=== PATIENT | male | born 1950 | race Caucasian/White ===

== ENCOUNTER → 2018-11-22 | Outpatient (CLI) | payer MEDICARE ==
--- NOTE | 2018-11-22 15:23 | CT ---
EXAM DESCRIPTION: CT abdomen and pelvis without and with contrast CLINICAL HISTORY: GROSS HEMATURIA COMPARISON: None Available. TECHNIQUE: Spiral CT with multiplanar reformatted images. Intravenous iodinated nonionic contrast, multiphase pre and post This exam was performed according to our departmental dose-optimization program, which includes automated exposure control, adjustment of the mA and/or kV according to patient size and/or use of iterative reconstruction technique. FINDINGS: Enhancing mass lesion within the urinary bladder at the right ureteral orifice 1.4 cm in greatest dimension. Minimal peripheral calcification is seen on precontrast images. Enhancing mass lesion in the anterior inferior bladder 1.6 cm in greatest dimension also with peripheral calcification. No renal, ureteral or bladder calculus. No mass lesion of the kidneys or ureters Central prostate hypertrophy with calcifications mildly indenting the base of the urinary bladder. No adenopathy in the pelvis Visualized lung bases demonstrate reticulonodular infiltrate in the majority of the visualized left lower lobe with mild peribronchial thickening. Minimal focal reticulonodular infiltrate over small region right lung base. No pleural effusions. Normal heart size Previous cholecystectomy. Mild pneumobilia. No hepatic mass lesion. Expected mildly prominent extrahepatic common bile duct. No pancreatic duct dilation. No mass lesion of the pancreas. Normal appearance of the spleen and adrenal glands Postsurgical change partial gastrectomy and gastrojejunostomy without acute abnormality. Extensive diverticulosis of descending and sigmoid colon. No focal diverticulitis. No mass or adenopathy in the omentum or retroperitoneum Atherosclerotic aorta without aneurysm Severe arthrosis of the left hip. Multilevel degenerative change in the lumbar spine with degenerative levoscoliosis IMPRESSION: 2 peripherally calcified exophytic round solid enhancing mass lesions within the urinary bladder, consistent with neoplasm/transitional cell carcinoma Extensive diverticulosis without diverticulitis Left lower lobe infiltrate/pneumonia Electronically signed by: Tristan Dougherty MD 11/22/2018 3:21 PM CDT
--- NOTE | 2018-11-22 15:33 | RAD ---
EXAM DESCRIPTION: Chest,2 Views CLINICAL HISTORY: BRONCHITIS COMPARISON: None TECHNIQUE: PA/lateral FINDINGS: There is no acute appearing cardiac or pulmonary abnormality. Heart size is normal with normal pulmonary vascularity. No pleural effusion or pneumothorax. Lungs are clear with no consolidating infiltrate. Lateral view shows intact sternum and T-spine. IMPRESSION: No acute process is identified in the chest. Electronically signed by: Mert Blum MD 11/22/2018 3:30 PM CDT
--- NOTE | 2018-11-22 15:43 | RAD ---
EXAM DESCRIPTION: Hip,Left 2 Views CLINICAL HISTORY: 68 years, Male, PAIN IN LEFT HIP COMPARISON: None TECHNIQUE: AP and frog leg lateral views of the left hip FINDINGS: 2 views of the left hip reveal no fracture or dislocation. No lytic bone lesion. Complete cartilage loss with sclerosis and subchondral cyst formation in the femoral head and acetabular roof consistent with severe osteoarthritis. Prominent apron osteophyte at the left femoral head neck junction. Degenerative changes in lower L-spine. Degenerative changes in the left SI joint. IMPRESSION: Advanced degenerative osteoarthrosis of the left hip. Electronically signed by: Mert Blum MD 11/22/2018 3:41 PM CDT
== END ==
LOC: LAB.O 14:04
PROVIDERS: ATTEND Family Medicine
DX: Z00.00 Encounter for general adult medical examination without abnormal findings (principal); N32.89 Other specified disorders of bladder; M16.12 Unilateral primary osteoarthritis, left hip; K57.30 Diverticulosis of large intestine without perforation or abscess without bleeding; J18.1 Lobar pneumonia, unspecified organism; J40 Bronchitis, not specified as acute or chronic; D50.9 Iron deficiency anemia, unspecified; R35.1 Nocturia; R53.83 Other fatigue; Z13.220 Encounter for screening for lipoid disorders

== ENCOUNTER → 2018-11-29 | Outpatient (CLI) | payer MEDICARE ==
--- NOTE | 2018-11-30 08:47 | US ---
EXAM DESCRIPTION: Liver: ULTRASOUND. CLINICAL HISTORY: R74.8 COMPARISON: CT abdomen and pelvis with and without contrast 11/22/2018. TECHNIQUE: Transabdominal scannin-dimensional and Doppler modes. FINDINGS: Gallbladder: Surgically absent. No fluid in the gallbladder fossa. Right upper quadrant Non-tender with transducer pressure. Common bile duct: caliber 5.9 mm within normal limits. Echogenic shadowing consistent with a. Liver: normal echogenicity; contour liver capsule smooth where seen. No fluid around the liver. Intrahepatic biliary ducts normal caliber. Foci of echogenicity with shadowing consistent with air. Doppler hepatopedal flow portal vein. 1 cm. Long axis right lobe 13.8 cm. Pancreas: normal size and echogenicity. Duct not seen. Right kidney: long axis measures 11.5 cm. Normal echogenicity. Normal cortical thickness. No hydronephrosis Aorta: Normal caliber from the proximal segment to the distal bifurcation. IMPRESSION: 1. Air in the intrahepatic biliary ducts and the proximal common bile duct which was also seen on prior CT scan. No ascites. 2. Liver pancreas and right kidney are unremarkable. Normal caliber of the aorta. Electronically signed by: Vargas Moon MD 11/30/2018 8:45 AM CDT
== END ==
LOC: US 12:00
PROVIDERS: ATTEND Family Medicine
DX: Z01.818 Encounter for other preprocedural examination (principal); R74.8 Abnormal levels of other serum enzymes; D50.9 Iron deficiency anemia, unspecified; R74.0 Nonspecific elevation of levels of transaminase and lactic acid dehydrogenase [LDH]

== ENCOUNTER → 2019-09-07 | Outpatient (CLI) | payer MEDICARE | LOC: YCFC.O 12:45 | PROVIDERS: ATTEND Family Medicine | DX: R30.9 Painful micturition, unspecified (principal) ==

== ENCOUNTER → 2019-10-03 | Outpatient (CLI) | payer MEDICARE | DX: R53.83 Other fatigue (principal) ==

== ENCOUNTER → 2019-11-29 | Outpatient (CLI) | payer MEDICARE | LOC: NM 09:06 | PROVIDERS: ATTEND Family Medicine | DX: R94.31 Abnormal electrocardiogram [ECG] [EKG] (principal) ==

== ENCOUNTER → 2019-12-11 | Outpatient (CLI) | payer MEDICARE | LOC: LAB.O 14:41 | PROVIDERS: ATTEND Orthopaedic Surgery | DX: Z01.818 Encounter for other preprocedural examination (principal) ==

== ENCOUNTER → 2019-12-26 | Outpatient (CLI) | payer MEDICARE ==
--- NOTE | 2019-12-26 16:19 | RAD ---
EXAM DESCRIPTION: Chest,2 Views: CR/ CLINICAL HISTORY: 69 years Male PRE OP, HIP REPLACEMENT COMPARISON: 2 view chest x-ray November 2018. TECHNIQUE: Two views. PA and Lateral. FINDINGS: Lungs: Well-inflated and clear of infiltrate. Pleural spaces: No effusion or pneumothorax bilaterally. Heart: Normal size. Pulmonary Vascularity: Not increased. Mediastinum: Not widened. Aorta: Unremarkable. Bony Thorax/Spine: No acute bony thoracic abnormalities. Disc space narrowing. IMPRESSION: No radiographic evidence of acute cardiopulmonary disease. Stable since prior chest x-ray. Electronically signed by: Vargas Moon MD 12/26/2019 4:18 PM CDT
== END ==
LOC: LAB.O 11:34
PROVIDERS: ATTEND Family Medicine
DX: Z01.89 Encounter for other specified special examinations (principal)

== ENCOUNTER → 2020-01-08 | Day surgery (SDC) | payer MEDICARE ==
[~2020-01-08] MED LIST: BUPIVACAINE 0.5% 30 ML VIAL INJ ONE; BUPIVACAINE LIPOSOME 13.3 MG/ML VIAL INJ ONE; LACTATED RINGERS 0 ML ONE; SODIUM CHL 0.9% 100ML MINI-BAG 0 ML IVPB ONE; SODIUM CHLORIDE 0.9% (FLUSH) 10 ML SYG ONE; SODIUM CHLORIDE 0.9% 100ML 0 ML IVPB ONE; SODIUM CHLORIDE 0.9% 250ML 0 ML ONE; TRANEXAMIC ACID 1,000 MG/10 ML VIAL ONE; VANCOMYCIN HCL INJ 1,000 MG VIAL IVPB ONE; ceFAZolin SODIUM 1 GM VIAL ONE
== END ==
LOC: AMB 05:31
PROVIDERS: ATTEND Orthopaedic Surgery
DX: Z53.9 Procedure and treatment not carried out, unspecified reason (principal)
CPT/HCPCS: 36415; 80307; 86850; 86900; 86901; 86922; A4216

== ENCOUNTER → 2020-03-05 | Outpatient (CLI) | payer MEDICARE | LOC: YCFC.O 09:35 | PROVIDERS: ATTEND Family Medicine | DX: Z73.3 Stress, not elsewhere classified (principal); R53.83 Other fatigue; R74.8 Abnormal levels of other serum enzymes; Z12.5 Encounter for screening for malignant neoplasm of prostate; Z13.220 Encounter for screening for lipoid disorders | CPT/HCPCS: 36415; 80053; 80061; 82607; 82746; 84443; 85025; 85651; 86039; 86140; G0103 ==

== ENCOUNTER → 2020-03-18 | Outpatient (CLI) | payer MEDICARE ==
--- NOTE | 2020-03-18 12:18 | RAD ---
EXAM DESCRIPTION: Chest,2 Views CLINICAL HISTORY: UPPER RESPIRATORY INFECTION COMPARISON: December 26, 2019, November 22, 2018 TECHNIQUE: PA/lateral FINDINGS: The lungs are well expanded and clear. No infiltrates or effusions or masses are noted. A tiny 2 mm nodular density in the lateral right apex is unchanged dating back to November 22, 2018. The heart is normal in size and shape with no evidence of vascular congestion. The errol and mediastinum demonstrate normal contours. The bony spine and chest wall is normal for age in appearance. IMPRESSION: Normal chest, two views Electronically signed by: Tristan Trotter MD 03/18/2020 12:16 PM CDT
--- NOTE | 2020-03-18 12:26 | CT ---
EXAM DESCRIPTION: Lung Screen Low Dose CLINICAL HISTORY: 69 years Male, FORMER LIGHT TOBACCO SMOKER COMPARISON: None. TECHNIQUE: This exam was performed according to our departmental dose-optimization program, which includes automated exposure control, adjustment of the mA and/or kV according to patient size and/or use of iterative reconstruction technique. Low-dose noncontrast CT of the chest with MIP reformatted images. FINDINGS: Mild S-shaped scoliosis of the thoracic spine noted with modest elevation and eventration of the left hemidiaphragm posteriorly. Normal-sized heart with moderately extensive coronary artery calcification present. Thoracic inlet and superior mediastinum are normal. No pathologic middle mediastinal or paratracheal adenopathy seen. Minimal great vessel calcification noted. No significant pleural effusions noted. Moderately extensive vascular atherosclerosis below the hemidiaphragms noted. Right lung demonstrates a tiny 2 mm calcified granuloma in the lateral right apex. No further evaluation recommended. No dominant pulmonary mass is or additional small nodules evident. Left lung demonstrates coarsened subpleural markings at the posterior lateral left lung base likely representing mild compressive atelectasis with the elevated hemidiaphragm. No worrisome pulmonary nodules or dominant mass is noted. No endotracheal or endobronchial lesions identified. IMPRESSION: 1. Essentially clear lungs except for tiny 2 mm calcified benign granuloma lateral right apex and mild fibrotic change or compressive atelectasis posterior left lung base adjacent to the elevated left hemidiaphragm. 2. Moderate coronary artery and great vessel and abdominal vascular calcification. 3. S-shaped scoliosis of the thoracic spine. Category 1 - No nodule or definitely benign nodules (probability of malignancy less than 1%). Follow-up: Continue annual screening with Low Dose Chest CT in 12 months. Electronically signed by: Tristan Trotter MD 03/18/2020 12:24 PM CDT
== END | disposition home or self-care (01) ==
LOC: LAB.O 11:11
PROVIDERS: ATTEND Family Medicine
DX: Z01.818 Encounter for other preprocedural examination (principal); J06.9 Acute upper respiratory infection, unspecified; Z87.891 Personal history of nicotine dependence; Z85.51 Personal history of malignant neoplasm of bladder; R39.89 Other symptoms and signs involving the genitourinary system
CPT/HCPCS: 36415; 71046; 80048; 81001; 85025; 87086; 93005; G0297

== ENCOUNTER → 2020-04-15 | Outpatient (CLI) | payer MEDICARE | LOC: LAB.O 11:40 | PROVIDERS: ATTEND Orthopaedic Surgery | DX: Z01.818 Encounter for other preprocedural examination (principal) ==

== ENCOUNTER → 2020-05-05 | Outpatient (CLI) | payer MEDICARE | LOC: YCFC.O 10:26 | PROVIDERS: ATTEND Family Medicine | DX: Z85.51 Personal history of malignant neoplasm of bladder (principal) ==

== ENCOUNTER → 2020-05-13 | Day surgery (SDC) | payer MEDICARE | LOC: AMB 05:50 | PROVIDERS: ATTEND Orthopaedic Surgery | DX: M25.551 Pain in right hip (principal); Z53.9 Procedure and treatment not carried out, unspecified reason ==

== ENCOUNTER 2020-05-20 05:29 | Inpatient (IN) | payer MEDICARE ==
[2020-05-20] MEDS ORDERED: SODIUM CHLORIDE 0.9% 100ML 100 ML IVPB ONE (05:44)
[2020-05-20] MEDS ORDERED: SODIUM CHLORIDE 0.9% (FLUSH) 10 ML SYG ONE (05:44)
[2020-05-20] MEDS ORDERED: SODIUM CHLORIDE 0.9% 250ML 250 ML ONE (05:44)
[2020-05-20] MEDS ORDERED: SODIUM CHL 0.9% 100ML MINI-BAG 100 ML IVPB ONE (05:44)
[2020-05-20] MEDS ORDERED: VANCOMYCIN HCL INJ 1,000 MG VIAL IVPB ONE (05:45)
[2020-05-20] MEDS ORDERED: LACTATED RINGERS 1,000 ML ONE (05:45)
[2020-05-20] MEDS ORDERED: ceFAZolin SODIUM 1 GM VIAL ONE (05:45)
[2020-05-20] MEDS ORDERED: MIDAZOLAM INJ 5 MG/5 ML VIAL ONE (06:23)
[2020-05-20] MEDS ORDERED: HYDROmorphone HCL INJ 2 MG/ML VIAL ONE (06:23)
[2020-05-20] MEDS ORDERED: BUPIVACAINE LIPOSOME 13.3 MG/ML VIAL INJ ONE (06:24)
[2020-05-20] MEDS ORDERED: FAMOTIDINE INJ 10 MG/ML VIAL IV ONE (06:24)
[2020-05-20] MEDS: TRANEXAMIC ACID 1,000 MG/10 ML VIAL ONE ×2 (06:51→11:02)
[2020-05-20] MEDS: ceFAZolin SODIUM 1 GM VIAL ONE ×3 (09:10→10:02)
[2020-05-20] MEDS: VANCOMYCIN HCL INJ 1,000 MG VIAL IVPB ONE ×3 (09:11→10:02)
[2020-05-20] MEDS: BUPIVACAINE 0.5% 30 ML VIAL INJ ONE ×2 (09:11→10:00)
[2020-05-20] MEDS: BUPIVACAINE LIPOSOME 13.3 MG/ML VIAL INJ ONE ×2 (09:11→10:00)
[2020-05-20] MEDS ORDERED: ELECTROLYTE-A 1,000 ML IVS ONE (09:26)
[2020-05-20] MEDS ORDERED: PROMETHAZINE HCL INJ 12.5 MG in SODIUM CHLORIDE 0.9% 50ML 50 ML IVPB PRN (11:05)
[2020-05-20] MEDS ORDERED: HYDROcodone 10MG/APAP 325MG 1 EA TAB PO PRN (11:05)
[2020-05-20] MEDS ORDERED: TEMAZEPAM 15 MG CAP PO PRN (11:05)
[2020-05-20] MEDS ORDERED: hydrOXYzine HCl 25 MG TAB PO PRN (11:05)
[2020-05-20] MEDS ORDERED: NALOXONE HCL INJ 0.4 MG/ML VIAL IV PRN (11:05)
[2020-05-20] MEDS ORDERED: MORPHINE SULFATE INJ 10 MG/ML VIAL IV PRN (11:05)
[2020-05-20] MEDS ORDERED: ACETAMINOPHEN 325 MG TAB PO PRN (11:05)
[2020-05-20] MEDS ORDERED: ALUMINUM & MAGNESIUM HYDROXIDE 30 ML UD PO PRN (11:05)
[2020-05-20] MEDS ORDERED: PROMETHAZINE HCL INJ 25 MG in SODIUM CHLORIDE 0.9% 50ML 50 ML IVPB PRN (11:05)
[2020-05-20] MEDS ORDERED: BISACODYL SUPPOSITORY 10 MG PR PRN (11:05)
[2020-05-20] MEDS ORDERED: TRANEXAMIC ACID INJ 1,000 MG in SODIUM CHLORIDE 0.9% 100ML 100 ML IVPB ONE (11:05)
[2020-05-20] MEDS ORDERED: SODIUM CHLORIDE 0.9% (FLUSH) 10 ML SYG IV PRN (11:05)
[2020-05-20] MEDS ORDERED: CYCLOBENZAPRINE HCL 10 MG TAB PO PRN (11:05)
[2020-05-20] MEDS ORDERED: traMADol HCL 50 MG TAB PO PRN (11:05)
[2020-05-20] MEDS ORDERED: ZOLPIDEM TARTRATE 5 MG TAB PO PRN (11:05)
[2020-05-20] MEDS ORDERED: BENZOCAINE-MENTH LOZ (CEPACOL) 1 EA LOZ MT PRN (11:05)
[2020-05-20] MEDS ORDERED: ONDANSETRON INJ 4 MG/2 ML VIAL IV PRN (11:05)
[2020-05-20] MEDS ORDERED: MORPHINE SULFATE INJ 10 MG/ML VIAL IM PRN (11:05)
[2020-05-20] MEDS ORDERED: MAGNESIUM HYDROXIDE 30 ML UD PO PRN (11:05)
[2020-05-20] MEDS ORDERED: CADD ADMIN SET 1 EA PKG INJ ONE (11:20)
[2020-05-20] MEDS ORDERED: MORPHINE PCA 1 MG/ML 100 ML BAG IVPB SCH (11:30)
--- NOTE | 2020-05-20 11:45 | RAD ---
EXAM DESCRIPTION: Pelvis x-ray single view CLINICAL HISTORY: 70 years Male, post-op COMPARISON: Previous x-ray pelvis October 10, 2019 FINDINGS: Total left hip arthroplasty with anatomic alignment of acetabular and femoral components. There is air in the soft tissues of the left hip. Bones of the pelvic ring appear intact. Degenerative changes in lower lumbar spine with narrowing SI joints. Mild degenerative changes of the right hip. IMPRESSION: Total left hip arthroplasty. Intact bony pelvis. Electronically signed by: Mert Blum MD 05/20/2020 11:44 AM CDT
--- NOTE | 2020-05-20 11:46 | RAD ---
EXAM DESCRIPTION: Hip x-ray,Left 2 Views CLINICAL HISTORY: 70 years, Male, post-op COMPARISON: None TECHNIQUE: AP and frog leg lateral views of the left hip FINDINGS: 2 x-ray views of the left hip reveal total left hip arthroplasty with air in the soft tissues consistent with recent surgery. The acetabular and femoral components are anatomically situated. No complicating fracture of the left hemipelvis or proximal femur. Sacrum appears intact. Degenerative changes lower lumbar spine. IMPRESSION: Total left hip arthroplasty. Electronically signed by: Mert Blum MD 05/20/2020 11:45 AM CDT
[2020-05-20] MEDS: IV SET AND CAP CHANGE INJ INJ SCH (13:00)
[2020-05-20] MEDS ORDERED: DEXAMETHASONE INJ 10 MG/ML VIAL IV ONE (16:21)
[2020-05-20] MEDS ORDERED: SODIUM CHLORIDE 0.9% 50 ML VIAL INJ ONE (16:21)
[2020-05-20] MEDS ORDERED: MAGNESIUM SULFATE INJ 1 GM/2 ML VIAL IVPB ONE (16:21)
[2020-05-20] MEDS ORDERED: EPINEPHrine HCL AMP 1 MG/ML AMP IVPB ONE (16:21)
[2020-05-20] MEDS ORDERED: ePHEDrine SULF 50 MG/ML IV ONE (16:21)
[2020-05-20] MEDS ORDERED: PROPOFOL 200 MG/20 ML VIAL IV ONE (16:21)
[2020-05-20] MEDS: ceFAZolin SODIUM 2 GM in SODIUM CHLORIDE 0.9% 100ML 100 ML IVPB SCH ×2 (16:46→23:47)
[2020-05-20] MEDS: DEX 5% W/NACL 0.45% 1000ML 1,000 ML IVS PRN (16:47)
[2020-05-20] MEDS: CELECOXIB 100 MG CAP PO SCH (16:47)
[2020-05-20] MEDS: VANCOMYCIN HCL INJ 1,000 MG in SODIUM CHLORIDE 0.9% 250ML 250 ML IVPB SCH (17:52)
--- NOTE | 2020-05-20 19:24 | CONS ---
SUPERVISING PHYSICIAN: Rikki Bowen MD REASON FOR CONSULTATION: Status post left hip surgery. HISTORY OF PRESENT ILLNESS: This is a 70 year-old male patient who has a history of avascular necrosis of the left hip. He requested Dr. Esau Sosa, orthopedic surgeon, for operative intervention to assist with his pain control. He was admitted to the hospital today prior to surgery. Dr. Sosa did a left total hip. There were no intraoperative complications and I am seeing him in consultation on the medical/surgical floor. PAST MEDICAL HISTORY: 1. Avascular necrosis of the left hip. 2. Lumbar disk disease with chronic low back pain. 3. Scoliosis. 4. History of bladder CA. 5. Gastric ulcer disease. PAST SURGICAL HISTORY: 1. Cholecystectomy. 2. Bladder surgery. 3. Partial gastrectomy. CURRENT MEDICATIONS: 1. Citalopram. 2. Donepezil. 3. Meloxicam. 4. Tamsulosin. ALLERGIES: NO KNOWN DRUG ALLERGIES. FAMILY HISTORY: SOCIAL HISTORY: He lives in [place]. He denies smoking, ETOH or illicit drug use. REVIEW OF SYSTEMS: Negative except as per history of present illness. PHYSICAL EXAMINATION: VITAL SIGNS: Temperature 96.5, heart rate 70, blood pressure 127/84, respiratory rate 15, oxygen saturation 98% on 3 liters nasal cannula. GENERAL: This is a 70 year-old male patient who is lying in his hospital bed. He is in no acute distress. HEENT: Normocephalic and atraumatic. Pupils are equal and reactive. Oropharynx is clear. NECK: Supple without mass. CHEST: Essentially clear to auscultation bilaterally. HEART: Regular rate and rhythm. ABDOMEN: Soft, nondistended, non-tender. Bowel sounds are positive. EXTREMITIES: He has a dressing to his left leg, dry and intact bilateral. Pedal pulses are palpable +2. NEUROLOGIC: He is awake, alert, and oriented x3. Cranial nerves II through XII are grossly intact as tested. LABORATORY: There are no labs to report. X-rays are per the EMR. IMPRESSION: 1. Avascular necrosis of the left hip status post left total hip arthroplasty performed by Dr. Esau Sosa, orthopedic surgeon, postoperative day #0. 2. Lumbar disk disease with chronic lower back pain. 3. History of bladder CA. PLAN: We will continue present supportive care. Orthopedic issues will be per Dr. Esau Sosa. He will begin his physical therapy for strengthening and conditioning tomorrow. I will restart his home medications as soon as they are verified. I have encouraged good pulmonary hygiene and we will continue to monitor home closely and follow as needed. [facility][id number] [facility]
[2020-05-20] MEDS: DOCUSATE CALCIUM 240 MG CAP PO SCH (21:21)
[2020-05-20] MEDS: ENOXAPARIN SODIUM 30 MG/0.3 ML SYG SUBCU SCH (23:47)
[2020-05-21] MEDS: HYDROcodone 5MG/APAP 325MG 1 EA TAB PO PRN ×2 (04:28→08:58)
[2020-05-21] MEDS: VANCOMYCIN HCL INJ 1,000 MG in SODIUM CHLORIDE 0.9% 250ML 250 ML IVPB SCH (06:10)
[2020-05-21] MEDS: MAGNESIUM OXIDE 400 MG TAB PO SCH (08:59)
[2020-05-21] MEDS: CELECOXIB 100 MG CAP PO SCH ×2 (08:59→17:46)
[2020-05-21] MEDS: ceFAZolin SODIUM 2 GM in SODIUM CHLORIDE 0.9% 100ML 100 ML IVPB SCH (09:08)
[2020-05-21] MEDS: ENOXAPARIN SODIUM 30 MG/0.3 ML SYG SUBCU SCH ×2 (11:37→23:41)
--- NOTE | 2020-05-21 20:50 | PN ---
SUPERVISING PHYSICIAN: Delvin Bowen MD DATE: 05/21/20 SUBJECTIVE: The patient says his pain has been fairly well controlled. He has had no other complaints. He seems to be doing with his physical therapy for the first time. OBJECTIVE: VITAL SIGNS: He remains afebrile with temperature 98.3, pulse 89, blood pressure 123/81, respirations 18, O2 saturation 94% on room air. GENERAL: The patient is resting comfortably, does not look to be in any distress. CHEST: Lungs are clear to auscultation HEART: Regular rate and rhythm. ABDOMEN: Soft, nontender. Positive bowel sounds. EXTREMITIES: Left hip has a dressing in place which is clean and dry. No signs of infection or bleeding. Distal pulses are strong. Capillary refill is brisk. NEUROLOGIC: Alert and oriented times three. LABORATORY: Postoperative hemoglobin 14.4, hematocrit 42.6. ASSESSMENT: 1. Avascular necrosis of the left hip status post left total hip arthroplasty performed by Dr. Esau Sosa, orthopedic surgeon, postoperative day #1. 2. Lumbar disk disease with chronic lower back pain. 3. History of bladder cancer. PLAN: We will continue to follow the patient as he progresses through physical therapy. We will defer orthopedic management to Dr. Sosa. I have encouraged aggressive bronchial hygiene with incentive spirometry. Until the patient can transition to outpatient management, we will continue to monitor and treat as needed. #[id number] [facility]
[2020-05-21] MEDS: DEX 5% W/NACL 0.45% 1000ML 1,000 ML IVS PRN (21:07)
[2020-05-21] MEDS: DOCUSATE CALCIUM 240 MG CAP PO SCH (21:08)
[2020-05-22] MEDS: ACETAMINOPHEN 500 MG TAB PO PRN (05:26)
[2020-05-22] MEDS: CELECOXIB 100 MG CAP PO SCH ×2 (08:47→18:22)
[2020-05-22] MEDS: MAGNESIUM OXIDE 400 MG TAB PO SCH (08:47)
--- NOTE | 2020-05-22 08:48 | PN ---
DATE: 05/22/20 SUBJECTIVE: Mr. Vilchis is doing well. He is up to a chair and eating. OBJECTIVE: Afebrile. Vital signs stable. Wound is clean. There are no signs or symptoms of infection. ASSESSMENT: Status post total hip arthroplasty. PLAN: The plan at this point is for him to continue with physical therapy. #[id number] [facility]
--- NOTE | 2020-05-22 08:50 | PN ---
DATE: 05/21/20 SUBJECTIVE: Mr. Vilchis is doing well. He is up to a chair. His pain is well controlled. OBJECTIVE: Dressing is clean, dry and intact. ASSESSMENT: Status post total hip arthroplasty. PLAN: The plan at this point is for him to begin his physical therapy today. #[id number] [facility]
[2020-05-22] MEDS: ENOXAPARIN SODIUM 30 MG/0.3 ML SYG SUBCU SCH ×2 (12:30→22:55)
[2020-05-22] MEDS: CEPHALEXIN MONOHYDRATE 500 MG CAP PO SCH ×2 (14:19→20:54)
[2020-05-22] MEDS: SODIUM CHLORIDE 0.9% (FLUSH) 10 ML SYG IV SCH ×2 (14:20→20:54)
[2020-05-22] MEDS: DOCUSATE CALCIUM 240 MG CAP PO SCH (20:54)
[2020-05-22 22:35] VITALS: O2SAT 94
--- NOTE | 2020-05-23 09:04 | PN ---
SUPERVISING PHYSICIAN: Delvin Bowen MD DATE: 05/22/20 SUBJECTIVE: The patient has been doing well with physical therapy. He says the pain has been well controlled. He has no further complaints. OBJECTIVE: VITAL SIGNS: Vital signs remain stable. Temperature 98.2, pulse 92, blood pressure 110/73, respirations 16 to 18, O2 saturation 94% on room air. GENERAL: The patient is resting comfortably. CHEST: Lungs are clear to auscultation HEART: Regular rate and rhythm. ABDOMEN: Soft, nontender. Positive bowel sounds. EXTREMITIES: Left hip has an island dressing in place which is clean and dry. No signs of drainage or complications. Distal pulses are strong. Capillary refill is brisk. NEUROLOGIC: Alert and oriented times three. LABORATORY: No additional laboratory. RADIOLOGY: Reviewed. ASSESSMENT: 1. Avascular necrosis of the left hip status post left total hip arthroplasty performed by Dr. Esau Sosa, orthopedic surgeon, postoperative day #2. 2. Lumbar disc disease with chronic lower back pain. 3. History of bladder cancer. PLAN: We will continue with physical therapy. He is doing well at this point. I think the plan is to discharge him to continue with [facility]. I think the plan is to discharge him on either Tuesday or Tuesday. Until the patient can transition to outpatient management, we will continue to encourage good bronchial hygiene and continue to follow and treat as needed. #[id number] [facility]
[2020-05-23] MEDS: ACETAMINOPHEN 500 MG TAB PO PRN (09:27)
[2020-05-23] MEDS: CEPHALEXIN MONOHYDRATE 500 MG CAP PO SCH (09:27)
[2020-05-23] MEDS: SODIUM CHLORIDE 0.9% (FLUSH) 10 ML SYG IV SCH (09:27)
[2020-05-23] MEDS: MAGNESIUM OXIDE 400 MG TAB PO SCH (09:27)
[2020-05-23] MEDS: CELECOXIB 100 MG CAP PO SCH (09:27)
[2020-05-23] MEDS: ENOXAPARIN SODIUM 30 MG/0.3 ML SYG SUBCU SCH (12:46)
[2020-05-23] MEDS: IV SET AND CAP CHANGE INJ INJ SCH (12:46)
--- NOTE | 2020-05-23 13:09 | PN ---
DATE: 05/23/20 SUBJECTIVE: Mr. Vilchis is doing well. He has been up walking. OBJECTIVE: Afebrile. Vital signs stable. Wound is clean. There are no signs or symptoms of infection. ASSESSMENT: Status post total hip arthroplasty. PLAN: The plan at this point is for him to likely to be discharged today. He will followup with us in two weeks and he will be doing routine outpatient therapy. [facility][id number] [facility]
[2020-05-23 17:46] VITALS: BP 113/81; TEMP 97.9
[2020-05-23] MEDS ORDERED: MAGNESIUM HYDROXIDE 30 ML UD PO ONE (21:00)
[2020-05-23] MEDS ORDERED: BISACODYL SUPPOSITORY 10 MG PR ONE (21:00)
--- NOTE | 2020-05-24 08:47 | DS ---
SUPERVISING PHYSICIAN: Rikki Bowen MD DISCHARGE DIAGNOSES: 1. Avascular necrosis of the left hip status post left total hip arthroplasty performed by Dr. Esau Sosa, orthopedic surgeon, postoperative day #3. 2. Lumbar disk disease with chronic lower back pain. 3. History of bladder CA. HISTORY OF PRESENT ILLNESS: This is a 70 year-old male patient who has a history of avascular necrosis of the left hip. He requested Dr. Esau Sosa, orthopedic surgeon, for operative intervention and to assist with pain control. He was admitted to the hospital today prior to surgery. He had no intraoperative complications and was admitted to the medical/surgical floor after his surgical procedure. HOSPITAL COURSE: The patient's home medications will be started. He did his physical therapy for strengthening and conditioning as per physical therapy protocol. He has had no problems during his hospital stay. He will have physical therapy on an outpatient basis at [facility] Department. He will be discharged home today in stable condition. LABORATORY: Followup hemoglobin is 14.4 and hematocrit 42.6. Radiology reports are per the EMR. DISCHARGE PLAN: The patient will be discharged home in stable condition. He is to resume his previous diet and increase his activity as per physical therapy. He has a followup appointment with Dr. Sosa on 06/06/20 at 11:00 A.M. He will also followup with [facility] physical therapy department on 05/26/20. In addition to his routine medications, he will have cyclobenzaprine, three and a half days of Cephalexin, 31 days of Xarelto and hydrocodone. He is to return to the hospital or followup with Dr. Sosa with any problems or complications. DISCHARGE MEDICATIONS: 1. Tamsulosin. 2. Mobic. 3. Citalopram. 4. Omeprazole. 5. Cephalexin. 6. Hydrocodone. 7. Xarelto. 8. Cyclobenzaprine. #[id number] [facility]
--- NOTE | 2020-05-30 09:13 | OP ---
DATE OF PROCEDURE: 05/20/20 PREOPERATIVE DIAGNOSIS: 1. Left hip osteoarthritis. POSTOPERATIVE DIAGNOSIS: 1. Left hip osteoarthritis. PROCEDURE: 1. Left total hip arthroplasty. SURGEON: Esau Sosa MD. SEMICONDUCTOR ASSEMBLER: Vargas Perez CST, SA-C. ANESTHESIA: General anesthesia. COMPLICATIONS: None. FINDINGS: Severe osteoarthritis of the hip. INDICATION: Mr. Vilchis has been suffering with severe arthritis and has failed conservative measures. Because of his failed conservative measures, he has requested operative intervention. After discussing the risks, benefits and alternatives to operative therapy, the patient has given informed consent for total hip arthroplasty. PROCEDURE: The patient was brought to the Operating Room and placed in supine position. General anesthesia was induced and the patient was positioned into the lateral decubitus position. The hemipelvis and leg were then sterilely prepped and draped. Following prepping and draping, an incision was made over the greater trochanter and extending distally. Dissection was carried down to the iliotibial band, which was split and the anterior one-third of the abductor musculature was elevated. Following that, the hip capsule was incised. The hip was dislocated and primary femoral neck cut was made. Bone graft was harvested from the femoral head. The acetabulum was exposed and the labrum was removed. Sequential reaming was carried down to a size 51 and a size 52 cup was impacted. It was stable and the trial cup was removed. The final component was impacted and three screws were used to augment the fixation. Following that, a liner was placed and attention was then focused on the femur. The femur was dislocated and canal was broached. Sequential broaching to a size 4 was performed. The 4 broach was left in place and 36 mm head was impacted. The hip was reduced and taken through a range of motion. It was stable without evidence of dislocation or instability. There was no impingement of the components. The hip was then dislocated and the trial component was removed. The final component was impacted in place. The wound was very thoroughly irrigated. The hip was reduced. It was taken through a range of motion and there was no evidence of instability. The wound was very thoroughly irrigated again and the wound was closed with reapproximation of the abductor musculature. The iliotibial band was closed and the skin was closed with a combination of running and interrupted subcuticular stitches. Sterile dressings were placed. The patient was awoken from anesthesia and taken to the Recovery Room. POSTOPERATIVE PLAN: The patient will be partial weightbearing starting on postoperative day 1. COMPONENTS: Sakina Accolade II stem size 4, 26 mm head, Tritanium cup, size 52. #[id number] [facility]D
== END 2020-05-23 13:00 | disposition home or self-care (01) | DRG 470 ==
LOC: AMB 05:29 → MS 11:40
PROVIDERS: ADMIT Orthopaedic Surgery; ATTEND Nurse Practitioner Acute Care
PROC: 0SRB02A Replacement of Left Hip Joint with Metal on Polyethylene Synthetic Substitute, Uncemented, Open Approach (ICD-10-PCS; principal; 2020-05-20 08:12)
DX: M87.852 Other osteonecrosis, left femur (principal); M16.12 Unilateral primary osteoarthritis, left hip; G89.29 Other chronic pain; M51.36 Other intervertebral disc degeneration, lumbar region; M41.9 Scoliosis, unspecified; M06.9 Rheumatoid arthritis, unspecified; I25.2 Old myocardial infarction; Z87.11 Personal history of peptic ulcer disease; Z85.51 Personal history of malignant neoplasm of bladder; Z79.1 Long term (current) use of non-steroidal anti-inflammatories (NSAID); Z79.899 Other long term (current) drug therapy; Z90.49 Acquired absence of other specified parts of digestive tract

== ENCOUNTER → 2020-09-09 | Outpatient (CLI) | payer MEDICARE | LOC: LAB.O 11:42 | PROVIDERS: ATTEND Family Medicine | DX: R19.5 Other fecal abnormalities (principal); D64.9 Anemia, unspecified ==

== ENCOUNTER → 2020-09-16 | Outpatient (CLI) | payer MEDICARE | LOC: YCFC.O 10:14 | PROVIDERS: ATTEND Family Medicine | DX: D64.9 Anemia, unspecified (principal) ==

== ENCOUNTER → 2020-09-18 | Outpatient (CLI) | payer MEDICARE | LOC: YCFC.O 12:09 | PROVIDERS: ATTEND Nurse Practitioner Family | DX: R50.9 Fever, unspecified (principal); Z20.828 Contact with and (suspected) exposure to other viral communicable diseases ==